=== PATIENT | male | born 1935 | race Two or more races ===

== ENCOUNTER → 2021-03-20 | Outpatient (CLI) | payer OTHER | END | disposition home or self-care (01) | LOC: PPH VACUNA 08:00 | PROVIDERS: ATTEND Emergency Medicine Pediatric Emergency Medicine | DX: Z23 Encounter for immunization (principal) ==

== ENCOUNTER 2024-01-22 12:23 | Emergency (ER) | payer OTHER ==
[~2024-01-22] VITALS: Ht 175.3 cm; Wt 83.9 kg
[2024-01-22] MEDS ORDERED: CHILDREN'S ASPI81 MG (12:28)
[2024-01-22] MEDS ORDERED: ATACAND32 MG PO (12:28)
[2024-01-22] MEDS ORDERED: TAMS0.4C PO (12:28)
[2024-01-22] MEDS ORDERED: NORVASC5 MG PO (12:28)
[2024-01-22] MEDS ORDERED: NEURONTIN300 MG PO (12:28)
[2024-01-22] MEDS ORDERED: PEPCID AC20 MG PO (12:29)
[2024-01-22] MEDS ORDERED: AZILECT1 MG (12:29)
[2024-01-22] MEDS ORDERED: CARBIDOPA-LEVO1 EAC6 PO (12:29)
[2024-01-22 13:33] LABS: PH,URINE 5.5 (5.0-8.0); URINE BILIRRUBIN Negative (NEGATIVE); URINE COLOR Yellow; URINE GLUCOSE Negative (NEGATIVE); URINE KETONE Trace (NEGATIVE); URINE LEUKOCYTE Trace; URINE NITRATE Negative; URINE UROBILINOGEN 0.2 E.U./dl
[2024-01-22 13:35] LABS: MEAN CELL VOLUME 87.9 fL (80.0-100.00); MEAN CORPUSCULAR HGB CONC 34.1 g/dl (32.0-36.0); PLATELET COUNT 229 K/uL (150-450); RED BLOOD COUNT 5.01 M/uL (4.00-6.00); RED CELL DISTRIBUTION WIDTH 14.6 % (11.5-14.5)
[2024-01-22 13:38] LABS: URINE EPITHELIAL CELLS 3.3 uL (0.0-38.8); URINE WBC 15.5 uL (0.0-23.2)
[2024-01-22 13:44] LABS: URINE APPEARANCE CLEAR; URINE BLOOD TRACE; URINE CAST 0.45 uL (0.0-1.40); URINE PROTEIN 100 (NEGATIVE)
[2024-01-22 14:12] LABS: CALCIUM 9.4 mg/dL (8.5-10.1); CREATININE SERUM 1.25 mg/dL (0.70-1.30); GFR 54.64; POTASSIUM 4.58 mEq/L (3.5-5.1)
== END 2024-01-22 17:05 | disposition home or self-care (01) ==
LOC: ER 12:25
PROVIDERS: General Practice
DX: N32.3 Diverticulum of bladder (principal); R31.9 Hematuria, unspecified; N39.0 Urinary tract infection, site not specified; I10 Essential (primary) hypertension
CPT/HCPCS: 36415; 74177; 99284; Q9965